=== PATIENT | female | born 1970 | race Two or more races ===

== ENCOUNTER 2020-08-07 07:42 | Day surgery (SDC) | payer OTHER ==
[~2020-08-07] VITALS: Ht 162.6 cm; Wt 59.0 kg
[2020-08-07] MEDS ORDERED: SINGULAIR10 MG (07:56)
== END 2020-08-07 16:30 | disposition home or self-care (01) ==
LOC: ER 07:42 → CIR.AMB 08:15
PROVIDERS: ATTEND Obstetrics & Gynecology
DX: N95.0 Postmenopausal bleeding (principal); Z20.828 Contact with and (suspected) exposure to other viral communicable diseases